=== PATIENT | female | born 1990 | race Hispanic/Latino ===

== ENCOUNTER → 2017-02-05 | Outpatient (REF) | payer OTHER ==
[~2017-02-05] MED LIST: MAGICMW SSP; MELO7.5T7 PO; NAPR500T PO
== END ==
LOC: M SFHCLERA 13:30
PROVIDERS: ATTEND Nurse Practitioner Family
DX: R11.2 Nausea with vomiting, unspecified (principal)

== ENCOUNTER → 2017-03-11 | Outpatient (REF) | payer OTHER ==
[2017-03-11 20:37] LABS: MEAN CORPUSCULAR HEMOGLOBIN 29.2 pg (27.0-33.0); MEAN CORPUSCULAR HGB CONC 31.9 g/dl (32.0-36.5); MEAN CORPUSCULAR VOLUME 91.6 fl (80.0-96.0); RED CELL DISTRIBUTION WIDTH 12.6 % (11.5-14.5)
== END ==
LOC: M SFHCLERA 11:46
PROVIDERS: ATTEND Family Medicine
DX: Z31.9 Encounter for procreative management, unspecified (principal); D57.3 Sickle-cell trait

== ENCOUNTER 2017-03-24 11:16 | Emergency (ER) | payer OTHER ==
[~2017-03-24] VITALS: Ht 149.9 cm; Wt 61.8 kg
[2017-03-24] MEDS ORDERED: NAPR500T PO (12:28)
[2017-03-24 13:06] VITALS: BP 119/69
== END 2017-03-24 13:10 | disposition home or self-care (01) ==
LOC: M ED 11:16
DX: G56.01 Carpal tunnel syndrome, right upper limb (principal); D57.3 Sickle-cell trait

== ENCOUNTER 2017-03-31 10:31 | Emergency (ER) | payer OTHER ==
[~2017-03-31] VITALS: Ht 149.9 cm; Wt 60.9 kg
[~2017-03-31 10:31] MED LIST changes: -MAGICMW SSP; -MELO7.5T7 PO
[2017-03-31 10:32] VITALS: BP 108/69
[2017-03-31] MEDS ORDERED: MAGICMW SSP (11:25)
[2017-03-31] MEDS ORDERED: MELO7.5T7 PO (11:25)
== END 2017-03-31 11:31 | disposition home or self-care (01) ==
LOC: M ED 10:31
DX: J02.9 Acute pharyngitis, unspecified (principal); G56.00 Carpal tunnel syndrome, unspecified upper limb; Z79.899 Other long term (current) drug therapy; F17.210 Nicotine dependence, cigarettes, uncomplicated

== ENCOUNTER 2017-04-19 15:44 | Emergency (ER) | payer OTHER ==
[~2017-04-19] VITALS: Ht 149.9 cm; Wt 59.1 kg
[~2017-04-19 15:44] MED LIST changes: +MAGICMW SSP; +MELO7.5T7 PO
[2017-04-19] MEDS ORDERED: ADACEL/BOOSTRIX VACCINE (DIPHTH/PERTUSS/ACELL/TETANUS)0.5ML SYR (90715) IM ONE (16:30)
[2017-04-19] MEDS ORDERED: NEOSPORIN OINT 0.9 GM PKT (FLOOR STOCK) As Ordered ONE (16:54)
--- NOTE | 2017-04-19 16:58 | REP ---
CT Head without contrast HISTORY: Trauma COMPARISON: None There is no intraparenchymal hemorrhage, acute infarct, mass or midline shift. The ventricular system is normal in appearance. There is no extra cerebral collection. There is no fracture. The visualized sinuses are clear. Soft tissue swelling is present over the right frontal bone. IMPRESSION: There is no intracranial lesion. Signed by Quentin Perez MD 04/19/2017 04:50 P
--- NOTE | 2017-04-19 17:02 | REP ---
CT cervical spine without contrast HISTORY: Trauma COMPARISON: None There is no acute fracture or subluxation. There is no disc bulge or herniation. The spinal canal and neural foramina are patent. The intervertebral discs and vertebral bodies are normal in height. IMPRESSION: There is no acute fracture or subluxation. Signed by Quentin Perez MD 04/19/2017 04:54 P
--- NOTE | 2017-04-19 17:18 | REP ---
PELVIS AND RIGHT HIP: AP view of the pelvis and AP and frogleg views of the right hip are performed. There is no evidence of acute fracture, dislocation or intrinsic bone disease. IMPRESSION: No fracture or dislocation. Signed by Milo Mckeon MD 04/22/2017 09:55 A
[2017-04-19 18:07] VITALS: BP 123/74
== END 2017-04-19 18:08 | disposition home or self-care (01) ==
LOC: M ED 15:44
DX: S06.0X0A Concussion without loss of consciousness, initial encounter (principal); S70.01XA Contusion of right hip, initial encounter; Y04.8XXA Assault by other bodily force, initial encounter; Y92.018 Other place in single-family (private) house as the place of occurrence of the external cause; Y93.89 Activity, other specified; Y99.8 Other external cause status; D57.3 Sickle-cell trait; F17.210 Nicotine dependence, cigarettes, uncomplicated

== ENCOUNTER → 2017-06-06 | Outpatient (CLI) | payer OTHER ==
--- NOTE | 2017-06-06 17:11 | REP ---
RIGHT HAND COMPLETE: 06/06/2017. Clinical history: Right thumb pain. Findings: Ulna minus variant noted with the distal radius, ulna otherwise unremarkable. A few soft tissue calcifications project on one image represent foreign body on the skin or screen artifact. They are only on the one image. Carpal bones and metacarpals are intact. Lunate subluxation or dislocation. Slight widening of the scapholunate joint but far less than 4 mm of 1.8 mm, not considered significant radiographically. MCP, IP joints intact. The phalanges intact. Impression: 1. No visible or displaced fracture, avulsion, subluxation or focal bone lesion.2. Ulna minus variant. Signed by Constantino Galvan MD 06/06/2017 08:46 P
== END ==
LOC: M LRY 16:11
PROVIDERS: ATTEND Nurse Practitioner Family
DX: M79.644 Pain in right finger(s) (principal)

== ENCOUNTER 2017-06-25 11:55 | Inpatient (IN) | payer OTHER ==
[2017-06-25 12:24] LABS: MEAN CORPUSCULAR HGB CONC 33.7 g/dl (32.0-36.5); MEAN CORPUSCULAR VOLUME 85.8 fl (80.0-96.0); PLATELET COUNT, AUTOMATED 389 10^3/uL (150-450); RED CELL DISTRIBUTION WIDTH 13.4 % (11.5-14.5); WHITE BLOOD COUNT 18.5 10^3/uL (4.0-10.0)
[2017-06-25 12:59] LABS: ALBUMIN 4.2 GM/DL (3.2-5.2); ALBUMIN/GLOBULIN RATIO 0.95 (1.00-1.93); ALKALINE PHOSPHATASE 63 U/L (45-117); ALT/SGPT 19 U/L (12-78); ANION GAP 7 MEQ/L (8-16); AST/SGOT 13 U/L (7-37); BILIRUBIN,DIRECT 0.1 MG/DL (0.0-0.2); BILIRUBIN,TOTAL 0.8 MG/DL (0.2-1.0); BLOOD UREA NITROGEN 9 MG/DL (7-18); CALCIUM LEVEL 8.7 MG/DL (8.5-10.1); CARBON DIOXIDE LEVEL 26 MEQ/L (21-32); CHLORIDE LEVEL 107 MEQ/L (98-107); CREATININE FOR GFR 0.73 MG/DL (0.55-1.02); GLOMERULAR FILTRATION RATE > 60.0 (>60); GLUCOSE, FASTING 87 MG/DL (70-105); POTASSIUM SERUM 3.6 MEQ/L (3.5-5.1); SODIUM LEVEL 140 MEQ/L (136-145); TOTAL PROTEIN 8.6 GM/DL (6.4-8.2)
[2017-06-25 14:42] LABS: METHADONE URINE NEGATIVE (NEGATIVE)
[2017-06-25] MEDS: POTASSIUM CHLORIDE 10 MEQ SR TABLET PO ×2 (15:05)
[2017-06-25] MEDS: ONDANSETRON 4MG/2ML VIAL (J2405) IV ×2 (15:28)
[2017-06-25] MEDS ORDERED: NICOTINE 14 MG/24 HR TRANSDERMAL TD ×2 (16:30)
[2017-06-25] MEDS: KCL 20MEQ IN 0.45NS 1000ML 1,000 ML IV (17:00)
[2017-06-25] MEDS ORDERED: ONDANSETRON 4MG/2ML VIAL (J2405) IV ×2 (20:15)
[2017-06-25 21:24] LABS: ANION GAP 6 MEQ/L (8-16); BLOOD UREA NITROGEN 10 MG/DL (7-18); CALCIUM LEVEL 8.2 MG/DL (8.5-10.1); CARBON DIOXIDE LEVEL 25 MEQ/L (21-32); CHLORIDE LEVEL 108 MEQ/L (98-107); GLOMERULAR FILTRATION RATE > 60.0 (>60); GLUCOSE, FASTING 90 MG/DL (70-105); POTASSIUM SERUM 4.2 MEQ/L (3.5-5.1); SODIUM LEVEL 139 MEQ/L (136-145)
[2017-06-26] MEDS: KCL 20MEQ IN 0.45NS 1000ML 1,000 ML IV (03:00)
[2017-06-26 07:31] LABS: MEAN CORPUSCULAR HEMOGLOBIN 29.2 pg (27.0-33.0); MEAN CORPUSCULAR HGB CONC 34.1 g/dl (32.0-36.5); MEAN CORPUSCULAR VOLUME 85.5 fl (80.0-96.0); PLATELET COUNT, AUTOMATED 336 10^3/uL (150-450); RED CELL DISTRIBUTION WIDTH 13.2 % (11.5-14.5); WHITE BLOOD COUNT 10.6 10^3/uL (4.0-10.0)
[2017-06-26 08:05] LABS: ANION GAP 5 MEQ/L (8-16); BLOOD UREA NITROGEN 10 MG/DL (7-18); CALCIUM LEVEL 8.1 MG/DL (8.5-10.1); CARBON DIOXIDE LEVEL 27 MEQ/L (21-32); CHLORIDE LEVEL 108 MEQ/L (98-107); CREATININE FOR GFR 0.68 MG/DL (0.55-1.02); GLOMERULAR FILTRATION RATE > 60.0 (>60); GLUCOSE, FASTING 91 MG/DL (70-105); MAGNESIUM LEVEL 2.1 MG/DL (1.8-2.4); POTASSIUM SERUM 4.5 MEQ/L (3.5-5.1); SODIUM LEVEL 140 MEQ/L (136-145)
[2017-06-26] MEDS: ENOXAPARIN 40 MG/0.4 ML SYRINGE (J1650) SC ×2 (08:56)
[2017-06-27] MEDS ORDERED: INFLUENZA QUADRIVALENT PF VACCINE 0.5ML SYRINGE (90686) IM ×2 (09:00)
== END 2017-06-26 19:12 | disposition left against medical advice (07) | DRG 812 ==
LOC: M ED 11:55 → M ED INP 20:09
DX: T43.222A Poisoning by selective serotonin reuptake inhibitors, intentional self-harm, initial encounter (principal); D50.9 Iron deficiency anemia, unspecified; D57.3 Sickle-cell trait; F17.210 Nicotine dependence, cigarettes, uncomplicated; F12.90 Cannabis use, unspecified, uncomplicated; F43.23 Adjustment disorder with mixed anxiety and depressed mood; R41.82 Altered mental status, unspecified; Z79.899 Other long term (current) drug therapy

== ENCOUNTER 2018-04-29 13:14 | Emergency (ER) | payer OTHER ==
[2018-04-29 13:23] LABS: HEMATOCRIT 38.5 % (36.0-47.0); HEMOGLOBIN 13.2 g/dl (12.0-15.5); MEAN CORPUSCULAR HEMOGLOBIN 28.8 pg (27.0-33.0); MEAN CORPUSCULAR HGB CONC 34.3 g/dl (32.0-36.5); MEAN CORPUSCULAR VOLUME 83.9 fl (80.0-96.0); PLATELET COUNT, AUTOMATED 424 10^3/uL (150-450); RED BLOOD COUNT 4.59 10^6/uL (4.00-5.40); RED CELL DISTRIBUTION WIDTH 13.3 % (11.5-14.5)
[2018-04-29 14:12] LABS: HCG, SERUM QUANTITATIVE 68580 MIU/ML
[2018-04-29 15:26] LABS: CHLAMYDIA DNA AMPLIFICATION NEGATIVE (NEGATIVE); GC DNA AMPLIFICATION NEGATIVE (NEGATIVE)
[2018-04-29 15:30] LABS: TYPE AND SCREEN 1 1
[2018-04-29 15:30] LABS: KETONE, URINE AUTO RFX NEGATIVE (NEGATIVE); LEUKOCYTE ESTERASE UR AUTO RFX NEGATIVE (NEGATIVE); NITRITE, URINE AUTO RFX NEGATIVE (NEGATIVE); RBC, URINE AUTO RFX 0 /HPF (0-3); SPECIFIC GRAVITY UR AUTO RFX 1.011 (1.002-1.035); SQUAM EPITHELIAL CELL UR AURFX 1 /HPF (0-6); WBC, URINE AUTO RFX 0 /HPF (0-3)
[2018-04-29] MEDS: RHOGAM 300 MCG (1500 IU) INJ (J2790) IM (16:00)
== END 2018-04-29 16:27 | disposition home or self-care (01) ==
LOC: M ED 13:14
DX: O20.0 Threatened abortion (principal); O23.591 Infection of other part of genital tract in pregnancy, first trimester; Z3A.01 Less than 8 weeks gestation of pregnancy; Z88.8 Allergy status to other drugs, medicaments and biological substances
CPT/HCPCS: 76801

== ENCOUNTER → 2018-05-02 | Outpatient (CLI) | payer OTHER ==
[2018-05-02 17:26] LABS: BASO # 0.1 10^3/uL (0.0-0.2); BASO % 0.3 % (0.0-1.0); EOS # 0.1 10^3/uL (0.0-0.50); EOS % 0.7 % (0.0-3.0); HEMATOCRIT 35.7 % (36.0-47.0); HEMOGLOBIN 12.3 g/dl (12.0-15.5); IMMATURE GRANULOCYTE % 0.5 % (0-3.0); LYMPH # 2.6 10^3/uL (1.5-6.5); LYMPH % 15.8 % (24.0-44.0); MEAN CORPUSCULAR HEMOGLOBIN 28.6 pg (27.0-33.0); MEAN CORPUSCULAR HGB CONC 34.5 g/dl (32.0-36.5); MONO # 1.2 10^3/uL (0.0-0.8); MONO % 7.4 % (0.0-5.0); NEUTROPHILS # 12.4 10^3/uL (1.8-7.7); NEUTROPHILS % 75.3 % (36.0-66.0); PLATELET COUNT, AUTOMATED 364 10^3/uL (150-450); RED CELL DISTRIBUTION WIDTH 13.2 % (11.5-14.5); WHITE BLOOD COUNT 16.5 10^3/uL (4.0-10.0)
[2018-05-02 21:27] LABS: CHLAMYDIA DNA AMPLIFICATION NEGATIVE (NEGATIVE); GC DNA AMPLIFICATION NEGATIVE (NEGATIVE)
[2018-05-05 11:31] LABS: HBsAg Prenatal NEGATIVE (NEGATIVE); HIV 1&2 SCREEN CENTAUR NEGATIVE (NEGATIVE); RUBELLA IgG QUALITATIVE IMMUNE (IMMUNE)
== END ==
LOC: M SMT 14:41
DX: Z34.81 Encounter for supervision of other normal pregnancy, first trimester (principal); Z36.89 Encounter for other specified antenatal screening; Z3A.08 8 weeks gestation of pregnancy

== ENCOUNTER → 2018-05-30 | Outpatient (REF) | payer OTHER | LOC: M LAB REF 12:10 | DX: Z36.89 Encounter for other specified antenatal screening (principal) | CPT/HCPCS: 87086 ==

== ENCOUNTER → 2018-07-07 | Outpatient (REF) | payer OTHER ==
[~2018-07-07] MED LIST changes: +FERR325T3 PO; +IRON50TA PO; +METR1GEL7 PV; +NAPR-50 PO; -NAPR500T PO; +PREP1TAB3 PO
== END ==
LOC: M LAB REF 12:52
PROVIDERS: ATTEND Advanced Practice Midwife
DX: Z34.02 Encounter for supervision of normal first pregnancy, second trimester (principal); Z36.89 Encounter for other specified antenatal screening

== ENCOUNTER → 2018-07-08 | Outpatient (CLI) | payer OTHER, SELFPAY ==
[~2018-07-08] MED LIST changes: +REGL10TA6 PO
--- NOTE | 2018-07-09 06:12 | REP ---
Clinical: Anatomical evaluation. Comparison: 04/29/2018 . Findings: Examination demonstrates a single live intrauterine in variable presentation. motion is identified by technologist. Placenta is noted posterior fundal and grade grade zero without evidence for placenta previa or abruption. Amniotic fluid volume is normal. Cervix measures 3.2 cm in length and appears closed. No evidence for nuchal cord. Gestational age by LMP 18 weeks 3 days with STEPAN 12/06/2018 . Gestational age by current measurements 17 weeks 4 days with STEPAN 12/12/2018 . FHR equals 154 beats per minute. BPD 3.9 cm 17 weeks 6 days HC 14.1 cm 17 weeks 3 days AC 12.1 cm 17 weeks 5-day FL 2.4 cm 17 weeks 2-day HL 2.4 cm 17 weeks 4-day HC/AC ratio 1.17 Estimated weight 200 grams ( 16th percentile). Anatomical assessment demonstrates normal structures including cranium, choroid plexus, cavum, cerebellum/posterior fossa, facial features, lungs, four-chamber heart/left ventricular outflow tracts, diaphragm, stomach, cord insertion/three-vessel cord, kidneys/bladder, and extremities. Impression: 1. Single live intrauterine in variable presentation demonstrating appropriate interval growth. 2. Limited evaluation of the right cardiac ventricular outflow tract and spine. Remainder of the anatomical assessment is complete and normal. Electronically Signed by Vinny Todd MD 07/09/2018 06:03 A
== END ==
LOC: M RAD 11:15
PROVIDERS: ATTEND Specialist
DX: Z36.89 Encounter for other specified antenatal screening (principal); Z3A.18 18 weeks gestation of pregnancy

== ENCOUNTER 2018-07-17 10:41 | Emergency (ER) | payer OTHER, SELFPAY ==
[~2018-07-17] VITALS: Ht 149.9 cm; Wt 85.6 kg
[~2018-07-17 10:41] MED LIST changes: -REGL10TA6 PO
[2018-07-17] MEDS ORDERED: diphenhydrAMINE INJ 50MG/ML VIAL (J1200) IV ONE (11:00)
[2018-07-17] MEDS ORDERED: ACETAMINOPHEN 325 MG TAB PO ONE (11:00)
[2018-07-17] MEDS ORDERED: METOCLOPRAMIDE INJ 10MG/2ML VIAL (J2765) IV ONE (11:00)
[2018-07-17] MEDS ORDERED: NS 1,000 ML IV ONE (11:00)
[2018-07-17] MEDS ORDERED: REGL10TA6 PO (11:22)
[2018-07-17 11:37] VITALS: BP 120/71
== END 2018-07-17 12:00 | disposition home or self-care (01) ==
LOC: M ED 10:41
DX: O99.89 Other specified diseases and conditions complicating pregnancy, childbirth and the puerperium (principal); G43.909 Migraine, unspecified, not intractable, without status migrainosus; O99.340 Other mental disorders complicating pregnancy, unspecified trimester; O99.019 Anemia complicating pregnancy, unspecified trimester; Z79.899 Other long term (current) drug therapy; Z88.6 Allergy status to analgesic agent
CPT/HCPCS: 96374; 96375; 99284; J1200; J2765

== ENCOUNTER → 2018-08-06 | Outpatient (CLI) | payer OTHER ==
[~2018-08-06] MED LIST changes: +REGL10TA6 PO
--- NOTE | 2018-08-06 20:06 | REP ---
Clinical: Anatomical evaluation. Comparison: 07/08/2018 . Findings: Examination demonstrates a single live intrauterine in cephalic presentation. motion is identified by technologist. Placenta is noted posterior/right lateral and grade grade 1 without evidence for placenta previa or abruption. Amniotic fluid volume is normal. Cervix measures 5.3 cm in length and appears closed. No evidence for nuchal cord. Gestational age by LMP 22 weeks 4 days with STEPAN 12/06/2018 . Gestational age by current measurements 21 weeks 2 days with STEPAN 12/15/2018 . FHR equals 140 beats per minute. HC 18.1 cm 20 weeks 3 days (less than 5%) HC/AC ratio 1.07 (1.04 - 1.23) Estimated weight 443 grams ( 19th percentile). Anatomical assessment demonstrates normal structures including cranium, choroid plexus, cavum, cerebellum/posterior fossa, facial features, lungs, four-chamber heart/ventricular outflow tracts, diaphragm, stomach, cord insertion/three-vessel cord, kidneys/bladder, spine, and extremities. Impression: 1. Single live intrauterine in cephalic presentation demonstrating appropriate interval growth. 2. While anatomical assessment is complete and normal, head circumference measures less than 5th percentile although HC/AC ratio remains normal range. Electronically Signed by Vinny Todd MD 08/06/2018 07:59 P
== END ==
LOC: M RAD 08:29
PROVIDERS: ATTEND Specialist
DX: Z34.82 Encounter for supervision of other normal pregnancy, second trimester (principal)

== ENCOUNTER → 2018-09-03 | Outpatient (REF) | payer OTHER | LOC: M LAB REF 13:10 | PROVIDERS: ATTEND Advanced Practice Midwife | DX: O99.352 Diseases of the nervous system complicating pregnancy, second trimester (principal); Z3A.00 Weeks of gestation of pregnancy not specified ==

== ENCOUNTER → 2018-09-23 | Outpatient (CLI) | payer OTHER ==
[2018-09-23 14:11] LABS: BASO % 0.2 % (0.0-1.0); EOS # 0.1 10^3/uL (0.0-0.50); EOS % 0.5 % (0.0-3.0); HEMATOCRIT 33.5 % (36.0-47.0); LYMPH % 17.4 % (24.0-44.0); MEAN CORPUSCULAR HGB CONC 32.8 g/dl (32.0-36.5); MEAN CORPUSCULAR VOLUME 85.2 fl (80.0-96.0); MONO # 0.8 10^3/uL (0.0-0.8); NEUTROPHILS # 8.5 10^3/uL (1.8-7.7); NEUTROPHILS % 74.5 % (36.0-66.0); PLATELET COUNT, AUTOMATED 459 10^3/uL (150-450); RED BLOOD COUNT 3.93 10^6/uL (4.00-5.40); WHITE BLOOD COUNT 11.4 10^3/uL (4.0-10.0)
== END ==
LOC: M SMT 09:11
PROVIDERS: ATTEND Advanced Practice Midwife
DX: Z34.82 Encounter for supervision of other normal pregnancy, second trimester (principal); Z3A.00 Weeks of gestation of pregnancy not specified

== ENCOUNTER → 2018-10-01 | Outpatient (CLI) | payer OTHER | LOC: M LAB 07:49 | PROVIDERS: ATTEND Advanced Practice Midwife | DX: Z34.02 Encounter for supervision of normal first pregnancy, second trimester (principal); Z3A.00 Weeks of gestation of pregnancy not specified ==

== ENCOUNTER → 2018-10-08 | Outpatient (CLI) | payer OTHER ==
[~2018-10-08] MED LIST changes: -NAPR-50 PO; +NAPR-837 PO
== END ==
LOC: M SMT 14:22
PROVIDERS: ATTEND Advanced Practice Midwife
DX: Z34.02 Encounter for supervision of normal first pregnancy, second trimester (principal); Z3A.00 Weeks of gestation of pregnancy not specified

== ENCOUNTER → 2018-10-23 | Outpatient (CLI) | payer OTHER ==
--- NOTE | 2018-10-24 09:06 | REP ---
OB ULTRASOUND: Real-time sonographic evaluation of the gravid uterus is performed. There is a single living intrauterine gestation. Estimated gestational age 33 weeks 5 days, EDC 12/06/2018. Today's measurements indicate appropriate growth. BPD 76 mm = 30 weeks 4 days, 5th percentile HC 300 mm = 33 weeks 2 days, 43rd percentile AC 300 mm = 34 weeks 0 days, 54th percentile Femur length 59 mm = 31 weeks 0 days, 9th percentile HC/AC ratio 1.0 within normal range. Estimated weight 2035 grams, 27th percentile. Cervix is closed and measures 4.2 cm in length. heart rate 147 beats per minute. Amniotic fluid within normal within normal limits, LONNY 13.8 within normal range of 8.2-24.7. SEEN/GROSSLY UNREMARKABLE Lateral ventricles Yes Posterior fossa No Upper lip Yes Four-chamber heart No LVOT No RVOT No Stomach Yes Cord insertion Yes Three vessel cord Yes Kidneys Yes Bladder Yes Spine No position: Vertex. Placenta: Posterior and on the right, grade 1 with no previa or abruption. Electronically Signed by Milo Mckeon MD 10/24/2018 12:43 P
== END ==
LOC: M RAD 16:45
PROVIDERS: ATTEND Advanced Practice Midwife
DX: O24.410 Gestational diabetes mellitus in pregnancy, diet controlled (principal); Z3A.33 33 weeks gestation of pregnancy

== ENCOUNTER → 2018-11-05 | Outpatient (REF) | payer OTHER | LOC: M LAB REF 18:18 | PROVIDERS: ATTEND Advanced Practice Midwife | DX: O24.415 Gestational diabetes mellitus in pregnancy, controlled by oral hypoglycemic drugs (principal); Z3A.35 35 weeks gestation of pregnancy ==

== ENCOUNTER → 2018-11-12 | Outpatient (CLI) | payer OTHER | LOC: M LAB 12:54 | PROVIDERS: ATTEND Advanced Practice Midwife | DX: O24.415 Gestational diabetes mellitus in pregnancy, controlled by oral hypoglycemic drugs (principal); Z3A.35 35 weeks gestation of pregnancy ==

== ENCOUNTER → 2018-11-20 | Outpatient (CLI) | payer OTHER ==
[~2018-11-20] MED LIST changes: +IBUP-1114 PO; +MAPA500T2 PO
--- NOTE | 2018-11-21 07:31 | REP ---
Clinical: Gestational diabetes for well-being and growth evaluation Comparison: 10/23/2018 . Findings: Examination demonstrates a single live intrauterine in cephalic presentation. motion is identified by technologist. Placenta is noted fundal and grade grade III without evidence for placenta previa or abruption. Amniotic fluid volume is normal. Cervix measures 4.7 cm in length and appears closed. No evidence for nuchal cord. Gestational age by LMP 37 weeks 5 days with STEPAN 12/06/2018 . Gestational age by current measurements 35 weeks 1 day with STEPAN 12/24/2018 . FHR equals 141 beats per minute. BPD 8.5 cm 34 weeks 1 day (less than 5th percentile) HC 30.9 cm 34 weeks 4 days (less than 5th percentile) AC 33.5 cm 37 weeks 3 days FL 6.7 cm 34 weeks 3 days (less than 5th percentile) HL 6.0 cm 34 weeks 6 days (less than 5th percentile) HC/AC ratio 0.92 Estimated weight 2818 grams ( 29th percentile). Biophysical profile score: 8/8 Amniotic fluid index: 12.1 cm (7.4 - 24.1) Umbilical cord SD ratio: 2.17 Impression: 1. Single live advanced gestation in cephalic presentation. Measurements as described above for and below the less than 5th percentile although estimated weight remains normal based on age by LMP. 2. Biophysical profile score and amniotic fluid volume are normal. Electronically Signed by Vinny Todd MD 11/20/2018 05:22 P
== END ==
LOC: M RAD 16:35
PROVIDERS: ATTEND Advanced Practice Midwife
DX: O24.415 Gestational diabetes mellitus in pregnancy, controlled by oral hypoglycemic drugs (principal); Z3A.37 37 weeks gestation of pregnancy

== ENCOUNTER 2018-11-23 08:38 | Inpatient (IN) | payer OTHER ==
[2018-11-23] VITALS (14 sets, daily range): BP systolic 118–169; BP diastolic 58–97
[~2018-11-23] VITALS: Ht 149.9 cm; Wt 91.9 kg
[~2018-11-23 08:38] MED LIST changes: -IBUP-1114 PO; -MAPA500T2 PO
[2018-11-23] MEDS ORDERED: NS 1,000 ML IV SCH (09:34)
[2018-11-23] MEDS ORDERED: INSULIN IV RATE CHANGE DOCUMENTATION ML/HR XX SCH (09:45)
[2018-11-23] MEDS: miSOPROStol 50 MCG 1/2 TAB (S0191) PO SCH ×4 (10:38→23:38)
[2018-11-23] MEDS: NS 1,000 ML IV SCH ×2 (10:39→18:49)
[2018-11-23] MEDS ORDERED: CALCIUM CARBONATE 500 MG CHEW U/D PO PRN (10:45)
[2018-11-23 10:51] LABS: HEMATOCRIT 29.3 % (36.0-47.0); HEMOGLOBIN 9.4 g/dl (12.0-15.5); MEAN CORPUSCULAR HEMOGLOBIN 25.5 pg (27.0-33.0); MEAN CORPUSCULAR HGB CONC 32.1 g/dl (32.0-36.5); MEAN CORPUSCULAR VOLUME 79.4 fl (80.0-96.0); PLATELET COUNT, AUTOMATED 332 10^3/uL (150-450); RED BLOOD COUNT 3.69 10^6/uL (4.00-5.40); WHITE BLOOD COUNT 10.4 10^3/uL (4.0-10.0)
[2018-11-23] MEDS ORDERED: INSULIN HUMAN REGULAR 100 UNITS in NS 99 ML IV SCH (11:00)
--- NOTE | 2018-11-23 13:20 | HPE ---
DATE OF ADMISSION: 11/23/2018 REASON FOR ADMISSION: Induction of labor for A2 gestational diabetes. HISTORY OF PRESENT ILLNESS: Mrs. Mcnamara is a 28-year-old, 1, who presents at 38 weeks and 1 day estimated gestational age by her last menstrual period, confirmed by first trimester ultrasound, for induction of labor for A2 gestational diabetes Her course has been complicated by A2 gestational diabetes which was diagnosed late at 34 weeks, but since this diagnosis she has been followed with antepartum testing. Her last growth ultrasound had her at the 27th percentile. She has been managed with metformin. PAST MEDICAL HISTORY: None. PAST SURGICAL HISTORY: None. OBSTETRICAL HISTORY: She is a 1. MEDICATION: Metformin. ALLERGIES: She has no known drug allergies. SOCIAL HISTORY: Denies any alcohol, tobacco or drug use during the . PHYSICAL EXAMINATION: Her vital signs are stable. She is afebrile. She has a category one rate tracing, heart rate 150s. Moderate variability. No contractions on tocometer. General Appearance: Well appearing, in no acute distress. Lungs: Clear to auscultation bilaterally. Cardiovascular: Heart regular rate and rhythm. Abdomen is gravid, nontender. Estimated weight (EFW) 2000 grams. Cervical Exam: She is long and closed. LABS: Her blood type is A negative. Antibody screen is negative. She is rubella immune. RPR is nonreactive. Hepatitis surface antigen negative. HIV is negative. Hepatitis C is nonreactive. Chlamydia and gonorrhea screens are negative. She had an elevated 1-hour Glucola as well as abnormal 3-hour glucose tolerance test. GBS negative. ASSESSMENT: 1. 28-year-old, 1 at 38 weeks and 1 day estimated gestational age by last menstrual period, confirmed by first trimester ultrasound, here for induction of labor. 2. Reassuring status. 3. A2 gestational diabetes mellitus. PLAN: 1. Admit to labor and delivery with CBC, RPR, type and screen. 2. Insulin drip per protocol. 3. The patient thoroughly counseled in regards to induction of labor as well as medications, procedures performed on labor and delivery, and she has also been verbally consented for emergency surgery, blood products and anesthesia. She desires to proceed with admission. 4. Will initiate her induction with 50 mcg of misoprostol every 4 hours.
--- NOTE | 2018-11-23 22:26 | NUR ---
L&D Note; -tolerating contractions 09/07. vss, AF cat 1 tracing fFHR 140s moderate variability gen: well appearing cx: 1/long/-3 A/P: IOL for A2GDM reassuring status cont with cytotec Gloria Breaux MD
[2018-11-23] MEDS ORDERED: PROMETHAZINE INJ 25 MG/ML VIAL (J2550) IV PRN (23:15)
[2018-11-23] MEDS ORDERED: BUTORPHANOL 2 MG/ML INJ (J0595) IV ONE (23:15)
[2018-11-24] VITALS (27 sets, daily range): BP systolic 114–154; BP diastolic 61–94
[2018-11-24] MEDS: miSOPROStol 50 MCG 1/2 TAB (S0191) PO SCH (04:35)
[2018-11-24] MEDS ORDERED: FENTANYL 2MCG/ML ROPIVACAINE 0.2% IN 0.9% NACL 100ML IVBAG As Ordered ONE (05:35)
[2018-11-24] MEDS ORDERED: FENTANYL/ROPIVACAINE/NACL BAG 100 ML EPIDURAL SCH (06:45)
[2018-11-24] MEDS ORDERED: ePHEDrine SULFATE 25 MG/5 ML(5MG/ML) SYRINGE IV PRN (06:45)
[2018-11-24] MEDS ORDERED: REFRIGERATOR IV KEYS XX PRN (06:45)
[2018-11-24] MEDS ORDERED: ONDANSETRON 4MG/2ML VIAL (J2405) IV PRN (06:45)
[2018-11-24] MEDS ORDERED: EPIDURAL/PCA KEYS XX PRN (06:45)
[2018-11-24] MEDS ORDERED: diphenhydrAMINE INJ 50MG/ML VIAL (J1200) IV PRN (06:45)
[2018-11-24] MEDS ORDERED: EPIDURAL COMMENT XX SCH (06:45)
[2018-11-24] MEDS ORDERED: NALOXONE INJ 0.4 MG/1 ML VIAL (J2310) IV PRN (06:45)
[2018-11-24] MEDS ORDERED: OXYTOCIN 30 UNITS IN 0.9% NaCl 500ML IV BAG (J2590) As Ordered ONE (07:32)
[2018-11-24] MEDS ORDERED: OXYTOCIN DRIP 30 UNITS in APPROPRIATE DILUENT 1 EA IV SCH (08:35)
[2018-11-24] MEDS ORDERED: METHYLERGONOVINE MALEATE 0.2 MG TAB PO PRN (08:45)
[2018-11-24] MEDS ORDERED: DOCUSATE SODIUM 100 MG CAP PO PRN (08:45)
[2018-11-24] MEDS ORDERED: IBUPROFEN 600 MG TAB PO PRN (08:45)
[2018-11-24] MEDS ORDERED: IBUPROFEN 800 MG TAB PO PRN (08:45)
[2018-11-24] MEDS ORDERED: ACETAMINOPHEN TAB 650MG DOSE (2X325MG) PO PRN (08:45)
[2018-11-24] MEDS ORDERED: RHOGAM 300 MCG (1500 IU) INJ (J2790) IM SCH (08:45)
[2018-11-24] MEDS ORDERED: ACETAMINOPHEN 500 MG TAB PO PRN (08:45)
[2018-11-24] MEDS ORDERED: DIBUCAINE 1% OINTMENT 30GM TOP PRN (08:45)
[2018-11-24] MEDS ORDERED: ANUSOL HC CREAM 30GM TOP PRN (08:45)
[2018-11-24] MEDS ORDERED: MEASLES,MUMPS,RUBELLA VACCINE INJ (MMR-II) (90707) SC SCH (08:45)
[2018-11-24] MEDS: PRENATAL VITAMINS CHEWABLE TABLET PO SCH (09:00)
--- NOTE | 2018-11-24 12:12 | DN ---
DATE OF DELIVERY: 11/24/2018 at 0750 hours STATUS: Spontaneous vaginal delivery, delivered. PROVIDER: Clara Sarabia CNM, WHNP ANESTHESIA: Epidural. ESTIMATED BLOOD LOSS: 250 FINDINGS: Female, 6 pounds 0 ounce, 2710 grams, Apgars 8/9, less than 20 seconds of shoulder dystocia, resolved with Dang, A2GDM. The patient is a 28-year-old female who is now a 1, para 1-0-0-1 at 38 weeks 2 days gestation at delivery who presented at 38 weeks 1 day gestation for induction of labor due to A2GDM. Patient received 5 doses of Cytotec for her induction. She received and epidural for pain management. The patient progressed to fully dilated at 0740 hours and pushed to a living female in the right occiput anterior (LEILANI) position with restitution to left occiput transverse (LOT) at 0750 hours. The patient had a shoulder dystocia less than 20 seconds that was resolved with Dang and the corpus immediately followed. The baby was placed on the maternal abdomen active and crying. Baby was skin to skin with mother. The cord was clamped times two after pulsations ceased and cut by the father of the baby. A three-vessel cord was noted. The placenta delivered spontaneously and intact at 0801 hours. Uterine hemostasis was achieved via fundal massage and IV pitocin. The vagina, the perineum and cervix was inspected and she was found to have a small second degree perineal laceration that was repaired with a 3.[address]-1 until hemostasis was achieved. The mom plans to breast feed her baby. They plan on naming her Mavis. Both mom and baby are in stable condition. All counts of equipment and sponges are correct. MTDD
[2018-11-24] MEDS ORDERED: SLF 3 ML SYR IV SCH (14:00)
[2018-11-24] MEDS: SLF 3 ML SYR IV SCH ×2 (14:38→22:37)
[2018-11-25 05:19] VITALS: BP 112/60
[2018-11-25] MEDS: SLF 3 ML SYR IV SCH ×3 (06:00→22:00)
[2018-11-25] MEDS: PRENATAL VITAMINS CHEWABLE TABLET PO SCH (08:32)
[2018-11-25 18:00] VITALS: BP 124/86
[2018-11-26 06:00] VITALS: BP 111/59
[2018-11-26] MEDS: SLF 3 ML SYR IV SCH (06:32)
[2018-11-26] MEDS: PRENATAL VITAMINS CHEWABLE TABLET PO SCH (08:54)
[2018-11-26] MEDS ORDERED: MAPA500T2 PO (09:39)
[2018-11-26] MEDS ORDERED: IBUP-1114 PO (09:40)
== END 2018-11-26 13:10 | disposition home or self-care (01) | DRG 807 ==
LOC: M LDI 08:38 → M OBS 11-24 09:59
PROVIDERS: ADMIT Obstetrics & Gynecology; ATTEND Obstetrics & Gynecology
PROC: 3E0DXGC Introduction of Other Therapeutic Substance into Mouth and Pharynx, External Approach (ICD-10-PCS; 2018-11-23)
PROC: 10E0XZZ Delivery of Products of Conception, External Approach (ICD-10-PCS; principal; 2018-11-24)
PROC: 0KQM0ZZ Repair Perineum Muscle, Open Approach (ICD-10-PCS; 2018-11-24)
DX: O24.419 Gestational diabetes mellitus in pregnancy, unspecified control (principal); Z37.0 Single live birth; Z3A.38 38 weeks gestation of pregnancy; O66.0 Obstructed labor due to shoulder dystocia; O70.1 Second degree perineal laceration during delivery

== ENCOUNTER 2019-02-26 11:41 | Emergency (ER) | payer OTHER ==
[~2019-02-26] VITALS: Ht 144.8 cm; Wt 88.7 kg
[~2019-02-26 11:41] MED LIST changes: -SPRI28TA
[2019-02-26] MEDS ORDERED: SPRI28TA (11:49)
--- NOTE | 2019-02-26 13:12 | REP ---
PA and lateral chest: Comparison is the bilateral rib series performed earlier today. The lung sinha are clear. The cardiac size is normal. The roby, mediastinum, and skeletal structures are unremarkable. Impression: Negative PA and lateral chest. There is no interval change. Electronically Signed by Milo Knowles MD 02/26/2019 01:03 P
[2019-02-26 14:55] LABS: BASO # 0.1 10^3/uL (0.0-0.2); BASO % 0.3 % (0.0-1.0); EOS # 0.1 10^3/uL (0.0-0.50); EOS % 0.7 % (0.0-3.0); HEMATOCRIT 33.4 % (36.0-47.0); HEMOGLOBIN 10.6 g/dl (12.0-15.5); LYMPH # 2.6 10^3/uL (1.5-6.5); LYMPH % 18.1 % (24.0-44.0); MEAN CORPUSCULAR HEMOGLOBIN 25.4 pg (27.0-33.0); MEAN CORPUSCULAR HGB CONC 31.7 g/dl (32.0-36.5); MEAN CORPUSCULAR VOLUME 80.1 fl (80.0-96.0); MONO # 1.5 10^3/uL (0.0-0.8); MONO % 10.3 % (0.0-5.0); NEUTROPHILS # 10.2 10^3/uL (1.8-7.7); NEUTROPHILS % 70.2 % (36.0-66.0); PLATELET COUNT, AUTOMATED 432 10^3/uL (150-450); RED BLOOD COUNT 4.17 10^6/uL (4.00-5.40); WHITE BLOOD COUNT 14.5 10^3/uL (4.0-10.0)
[2019-02-26 15:11] LABS: ALBUMIN 3.4 GM/DL (3.2-5.2); ALT/SGPT 14 U/L (12-78); BILIRUBIN,TOTAL 0.3 MG/DL (0.2-1.0); BLOOD UREA NITROGEN 12 MG/DL (7-18); CALCIUM LEVEL 8.6 MG/DL (8.5-10.1); CARBON DIOXIDE LEVEL 28 MEQ/L (21-32); CHLORIDE LEVEL 108 MEQ/L (98-107); CREATININE FOR GFR 0.78 MG/DL (0.55-1.30); GLOMERULAR FILTRATION RATE > 60.0 (>60); GLUCOSE, FASTING 101 MG/DL (70-100); SODIUM LEVEL 140 MEQ/L (136-145); TOTAL PROTEIN 7.5 GM/DL (6.4-8.2)
[2019-02-26] MEDS ORDERED: ISOVUE-370 76% 100ML VIAL (Q9967) As Ordered ONE (15:36)
[2019-02-26 16:24] VITALS: BP 133/80
--- NOTE | 2019-02-26 17:14 | REP ---
CT pulmonary angiogram: With IV contrast. History: Shortness of breath. Elevated D-dimer. Comparison studies: No comparisons chest CT. Contrast dose: 75 ML of Isovue [address] technique: Helical scanning is acquired and overlapping 1.5 mm and contiguous 3 mm axial images are reformatted. In addition, maximum intensity projection and multiplanar re-formation images are generated in sagittal and coronal imaging projections. CT pulmonary angiographic findings: There is good opacification of the pulmonary arterial tree. There is no CT evidence of pulmonary embolism. Thoracic aorta enhances homogeneously. There is no evidence of thoracic aneurysm or dissection. There is no evidence of pleural or pericardial effusion. No hilar or mediastinal mass or adenopathy is seen. The lung sinha are clear. Maximal intensity projection images show no vessel cutoff or filling defect. No significant bony abnormality is seen. Impression: No CT evidence of pulmonary embolus. No active disease. Electronically Signed by Thomas Iqbal MD 02/26/2019 05:23 P
== END 2019-02-26 17:13 | disposition home or self-care (01) ==
LOC: M ED 11:41
DX: R06.00 Dyspnea, unspecified (principal); R07.81 Pleurodynia
CPT/HCPCS: 71046; 71101; 71275; 80053; 85025; 85379; 99284; G0463; Q9967

== ENCOUNTER → 2019-02-26 | Outpatient (CLI) | payer OTHER ==
[~2019-02-26] MED LIST changes: +IBUP-1114 PO; +MAPA500T2 PO; +SPRI28TA
--- NOTE | 2019-02-26 11:55 | REP ---
Right rib series four views: There is no fracture or other rib abnormality. PA chest: There is no pneumothorax, hemothorax or pulmonary contusion. Lung sinha are clear. Cardiac size normal. The roby, mediastinum, skeletal structures are unremarkable. Impression: Negative PA chest Electronically Signed by Milo Knowles MD 02/26/2019 11:46 A
== END ==
LOC: M LRY 10:04
PROVIDERS: ATTEND Nurse Practitioner Family
DX: R07.81 Pleurodynia (principal)

== ENCOUNTER → 2019-02-27 | Outpatient (REF) | payer OTHER ==
[~2019-02-27] MED LIST changes: +SPRI28TA
== END ==
LOC: M LAB REF 17:16
PROVIDERS: ATTEND Advanced Practice Midwife
DX: Z12.4 Encounter for screening for malignant neoplasm of cervix (principal)

== ENCOUNTER → 2019-07-22 | Outpatient (REF) | payer OTHER | LOC: M SFHCLERA 10:24 | PROVIDERS: ATTEND Family Medicine | DX: E66.01 Morbid (severe) obesity due to excess calories (principal) ==

== ENCOUNTER → 2019-08-04 | Outpatient (CLI) | payer OTHER ==
--- NOTE | 2019-08-04 13:42 | REP ---
Right foot four views: There are no comparisons. There is a nondisplaced spiral fracture of the fourth digit proximal phalange. There is no dislocation. Mineralization and joint spaces is normal. There are no calcifications or foreign bodies. Impression: Nondisplaced spiral fracture of the fourth digit proximal phalange. Electronically Signed by Milo Knowles MD 08/04/2019 01:34 P
== END ==
LOC: M LRY 09:52
PROVIDERS: ATTEND Nurse Practitioner Family
DX: S92.514A Nondisplaced fracture of proximal phalanx of right lesser toe(s), initial encounter for closed fracture (principal); X58.XXXA Exposure to other specified factors, initial encounter; Y92.9 Unspecified place or not applicable
CPT/HCPCS: 73630; G0463

== ENCOUNTER → 2019-09-01 | Outpatient (REF) | payer OTHER | LOC: M SFHCWAGY 10:25 | PROVIDERS: ATTEND Specialist | DX: R87.610 Atypical squamous cells of undetermined significance on cytologic smear of cervix (ASC-US) (principal) | CPT/HCPCS: 87624; G0123 ==

== ENCOUNTER → 2020-01-06 | Outpatient (REF) | payer OTHER ==
[2020-01-06 13:34] LABS: HEMATOCRIT 39.3 % (36.0-47.0); HEMOGLOBIN 12.7 g/dl (12.0-15.5); MEAN CORPUSCULAR HGB CONC 32.3 g/dl (32.0-36.5); MEAN CORPUSCULAR VOLUME 83.6 fl (80.0-96.0); PLATELET COUNT, AUTOMATED 391 10^3/uL (150-450); WHITE BLOOD COUNT 8.6 10^3/uL (4.0-10.0)
[2020-01-06 13:43] LABS: THYROID STIMULATING HORMONE 0.842 uIU/ML (0.358-3.740)
[2020-01-06 13:44] LABS: LUTEINIZING HORMONE 5.3 mIU/mL
[2020-01-06 13:45] LABS: ESTRADIOL 54.7 PG/ML
[2020-01-07 13:14] LABS: TESTOSTERONE FREE (DIRECT) 2.9 pg/mL (0.0-4.2)
== END ==
LOC: M PLALAB 10:54
PROVIDERS: ATTEND Advanced Practice Midwife
DX: N92.6 Irregular menstruation, unspecified (principal)